=== PATIENT | female | born 1980 | race Caucasian/White ===

== ENCOUNTER 2016-06-12 21:59 | Emergency (ER) | payer MEDICAID ==
--- NOTE | ~2016-06-12 | CT71 ---
[facility] RADIOLOGY TEXT RESULTS PATIENT: YARELY MIRANDA LOCATION: SED : 76 UNIT #: [id number] AGE: [address]: David John MD SEX: F ORDER DR: [id number] [place] [id number] E MR#: [id number] Acc #: [id number] NAME: YARELY MIRANDA : 1980 SEX: F STUDY DATE/TIME: 06/12/2016 22:19 UNIT: SED ROOM: STUDY DESCRIPTION: CT Head Wo Contrast Attending Physician: David John M.D. Ordering Physician: David John M.D. MEDICAL IMAGING REPORT This report is preliminary unless electronic signature is present. EXAM CT head without IV contrast COMPARISON None. INDICATION A 35-year-old female with right-sided headache for 2 days. Patient has also had cough and nasal congestion since that time. TECHNIQUE This CT exam was performed with one or more of the following radiation dose reduction techniques: automatic exposure control, adjustment of mA and/or kV according to patient size, and iterative reconstruction. FINDINGS Exam is mildly limited by motion. Mastoid air cells middle ears are well-aerated. There is [id number] appearing mucosal thickening of the ethmoid air cells with moderate mucosal thickening of the right sphenoid sinus. There are no associated air fluid levels. No acute fracture, suspicious osseous lesion or focal osseous destruction. Normal cerebral volume. No mass effect. No abnormal extraaxial fluid collection. No acute intracranial hemorrhage. No evidence of acute ischemia. IMPRESSION 1. No acute intracranial abnormality. 2. Mild to moderate thickening of the mucosa of the ethmoid air cells and moderate mucosal thickening of the right sphenoid sinus. [facility] RADIOLOGY TEXT RESULTS PATIENT: YARELY MIRANDA LOCATION: SED : 76 UNIT #: [id number] AGE: [address]: David John MD SEX: F ORDER DR: of uncertain acuity. There are no associated air fluid levels. Dictated by... Yo Birch M.D. THIS IS AN ELECTRONICALLY VERIFIED REPORT Yo Birch M.D. at 06/16/2016 7:00 PM Denzel TD: 06/13/2016 01:48 JOB #: [id number] MEDICAL IMAGING REPORT
[~2016-06-12 21:59] MED LIST: ACID CONTROL150 M1 PO; CELEXA20 M1 PO; FLONASE 0.05% N16 GM; KLONOPIN PO; PROAIR HFA8.5 GM INH; SINGULAIR PO; SYMBICORT INH; WELLBUTRIN SR150 M1 PO
[2016-06-12] MEDS ORDERED: OMNICEF300 MG PO (23:00)
[2016-06-12] MEDS ORDERED: PROMETHAZINE D118 ML PO (23:01)
== END 2016-06-12 23:25 | disposition home or self-care (01) ==
LOC: SED 21:59
DX: R51 Headache (principal); J01.90 Acute sinusitis, unspecified; K21.9 Gastro-esophageal reflux disease without esophagitis; J45.909 Unspecified asthma, uncomplicated
CPT/HCPCS: 70450; 96372; 99284; J1885